=== PATIENT | male | born 1990 | race Hispanic/Latino ===

== ENCOUNTER 2023-12-02 09:54 | Emergency (ER) | payer BC, OTHER ==
[~2023-12-02] VITALS: Ht 162.6 cm; Wt 73.7 kg
[2023-12-02 09:58] VITALS: PULSE 88; RESP 18; TEMP 97.9; O2SAT 97
[2023-12-02] MEDS ORDERED: KETOROLAC TROMET5 ML OS (10:57)
[2023-12-02] MEDS ORDERED: GENTAMICIN SULFA5 ML OS (10:59)
[2023-12-02] MEDS ORDERED: HYDROCODON-ACE1 EAC9 PO (11:00)
[2023-12-02] MEDS ORDERED: TETRACAINE HCL 0.5% OPTH SOLN 4 ML BTL OP ONE (12:30)
[2023-12-02] MEDS ORDERED: FLUORESCEIN SOD(OPTH) 1 MG STRP OP ONE (12:30)
== END 2023-12-02 11:41 | disposition home or self-care (01) ==
LOC: FSED 09:59 → EDBD 09:59 → FSED 11:41
DX: H57.12 Ocular pain, left eye (principal); S05.02XA Injury of conjunctiva and corneal abrasion without foreign body, left eye, initial encounter; X58.XXXA Exposure to other specified factors, initial encounter
CPT/HCPCS: 99283